=== PATIENT | male | born 1965 | race Caucasian/White ===

== ENCOUNTER 2018-03-27 06:36 | Emergency (ER) | payer OTHER ==
[2018-03-27] MEDS ORDERED: METHYLPREDNISOLONE 125 MG INJ ONE (07:06)
[2018-03-27] MEDS ORDERED: DIPHENHYDRAMINE 50 MG/ML VIAL ONE (07:07)
[2018-03-27] MEDS ORDERED: FAMOTIDINE 20 MG/2 ML VIAL IV ONE (07:07)
[2018-03-27] MEDS ORDERED: predniSONE 20 MG TAB ONE (07:07)
[2018-03-27] MEDS ORDERED: NA CHLORIDE 0.9% 1,000 ML ONE (07:08)
[2018-03-27 07:12] LABS: Absolute Lymphocytes (CBC) 1.2 K/uL (0.7-4.9); Absolute Monocytes 0.9 K/uL (0.1-1.3); Absolute Neutrophil 4.4 K/uL (1.8-8.0); Basophils % 0.3 % (0-1.3); Eosinophils % 7.6 % (0-4.4); Hematocrit 48.3 % (39.6-49.0); Lymphocytes % 16.9 % (15.3-44.8); MCH 32.1 pg (27.0-35.0); MPV 10.4 fL (7.6-11.3); Monocytes % 12.5 % (3.3-12.3); RBC Red Blood Cell Count 5.08 M/uL (4.33-5.43)
[2018-03-27 07:46] LABS: Bilirubin Total 0.5 mg/dL (0.2-1.0); Potassium 4.4 mmol/L (3.5-5.1); Protein, Total 7.7 g/dL (6.4-8.2)
[2018-03-27] MEDS ORDERED: IPRATROPIUM BROM 0.5MG/2.5ML ONE (08:02)
[2018-03-27] MEDS ORDERED: ALBUTEROL 2.5 MG/3 ML NEB SOL ONE (08:02)
--- NOTE | 2018-03-27 08:30 | EDPHYS ---
Physician Documentation [facility] Name: Bob Borjas Age: 52 yrs Sex: Male : 1965 Arrival Date: 03/27/2018 Time: 06:40 Bed 5 Private MD: Anthony Herndon T ED Physician Lee Aguirre HPI: 03/27 06:53 This 52 yrs old Male presents to ER via Ambulatory with complaints of rudy Allergic Reaction. 06:53 The patient presents with difficulty swallowing, redness of skin, runny nose, swelling rudy of the lips, swelling of the tongue. Onset: The symptoms/episode began/occurred just prior to arrival, this morning. Associated signs and symptoms: The patient has no apparent associated signs or symptoms. Possible causes: The patient has no known obvious cause for the symptoms, symbicort, avacados. At home the patient or guardian has treated the symptoms with nothing. Severity of symptoms: At their worst the symptoms were mild in the emergency department the symptoms are unchanged. The patient has not experienced similar symptoms in the past. Historical: - Allergies: 06:52 No Known Allergies; ea - Home Meds: 06:52 losartan oral oral [Active]; allopurinol 300 mg Oral tab 1 tab once daily [Active]; ea Bystolic 5 mg oral tab 1 tab once daily [Active]; escitalopram oxalate oral oral [Active]; Vandana Oral [Active]; - PMHx: 06:53 Hypertension; Asthma; ea - Immunization history:: Adult Immunizations up to date. - Social history:: Smoking status: Patient/guardian denies using tobacco. - Ebola Screening: : No symptoms or risks identified at this time. - Family history:: not pertinent. ROS: 06:53 Constitutional: Negative for fever, chills, and weight loss, Eyes: Negative for injury, rudy pain, redness, and discharge, ENT: Negative for injury, pain, and discharge, Neck: Negative for injury, pain, and swelling, Cardiovascular: Negative for chest pain, palpitations, and edema, Respiratory: Negative for shortness of breath, cough, wheezing, and pleuritic chest pain, Abdomen/GI: Negative for abdominal pain, nausea, vomiting, diarrhea, and constipation, Back: Negative for injury and pain, : Negative for injury, bleeding, discharge, and swelling, MS/Extremity: Negative for injury and deformity, Skin: Negative for injury, rash, and discoloration, Neuro: Negative for headache, weakness, numbness, tingling, and seizure, Psych: Negative for depression, anxiety, suicide ideation, homicidal ideation, and hallucinations, Endocrine: Negative for neck swelling, polydipsia, polyuria, polyphagia, and marked weight changes, Hematologic/Lymphatic: Negative for swollen nodes, abnormal bleeding, and unusual bruising. 06:53 Allergy/Immunology: Positive for allergies. Exam: 06:53 Constitutional: This is a well developed, well nourished patient who is awake, alert, rudy and in no acute distress. Eyes: Pupils equal round and reactive to light, extra-ocular motions intact. Lids and lashes normal. Conjunctiva and sclera are non-icteric and not injected. Cornea within normal limits. Periorbital areas with no swelling, redness, or edema. ENT: Nares patent. No nasal discharge, no septal abnormalities noted. Tympanic membranes are normal and external auditory canals are clear. Oropharynx with no redness, swelling, or masses, exudates, or evidence of obstruction, uvula midline. Mucous membranes moist. Neck: Trachea midline, no thyromegaly or masses palpated, and no cervical lymphadenopathy. Supple, full range of motion without nuchal rigidity, or vertebral point tenderness. No Meningismus. Chest/axilla: Normal chest wall appearance and motion. Nontender with no deformity. No lesions are appreciated. Cardiovascular: Regular rate and rhythm with a normal S1 and S2. No gallops, murmurs, or rubs. Normal PMI, no JVD. No pulse deficits. Respiratory: Lungs have equal breath sounds bilaterally, clear to auscultation and percussion. No rales, rhonchi or wheezes noted. No increased work of breathing, no retractions or nasal flaring. Abdomen/GI: Soft, non-tender, with normal bowel sounds. No distension or tympany. No guarding or rebound. No evidence of tenderness throughout. Back: No spinal tenderness. No costovertebral tenderness. Full range of motion. Male : Normal genitalia with no discharge or lesions. Skin: Warm, dry with normal turgor. Normal color with no rashes, no lesions, and no evidence of cellulitis. MS/ Extremity: Pulses equal, no cyanosis. Neurovascular intact. Full, normal range of motion. Neuro: Awake and alert, GCS 15, oriented to person, place, time, and situation. Cranial nerves II-XII grossly intact. Motor strength 5/5 in all extremities. Sensory grossly intact. Cerebellar exam normal. Normal gait. Psych: Awake, alert, with orientation to person, place and time. Behavior, mood, and affect are within normal limits. 06:53 Head/face: Noted is swelling, that is mild, that is moderate, of the mouth. Vital Signs: 06:53 BP 154 / 94; Pulse 70; Resp 18; Temp 97.8(TE); Pulse Ox 97% on R/A; Weight 113.4 kg; ea Height 6 ft. (182.88 cm); 07:30 BP 157 / 106; Pulse 59; Resp 18; Pulse Ox 97% ; sv 08:00 BP 125 / 89; Pulse 73; Resp 16; Pulse Ox 100% ; sv 08:40 BP 157 / 81; Pulse 69; Resp 16; Pulse Ox 99% on R/A; sv 06:53 Body Mass Index 33.91 (113.40 kg, 182.88 cm) ea MDM: 06:41 Patient medically screened. rudy 06:56 Data reviewed: vital signs, nurses notes, lab test result(s), CBC, electrolytes. rudy 08:27 Counseling: I had a detailed discussion with the patient and/or guardian regarding: the ma2 historical points, exam findings, and any diagnostic results supporting the discharge/admit diagnosis, the presence of at least one elevated blood pressure reading (>120/80) during this emergency department visit, the need for outpatient follow up. Response to treatment: the patient's symptoms have resolved after treatment. ED course: signed out to me by , allergic reaction resolved now.. . 03/27 06:53 Order name: CBC with Diff rudy 03/27 06:53 Order name: Comprehensive Metabolic Panel rudy Administered Medications: 07:00 Drug: NS 0.9% 1000 ml Route: IV; Rate: 1 bolus; Site: right antecubital; cc3 08:00 Follow up: Response: No adverse reaction; IV Status: Completed infusion; IV Intake: sv 1000ml 07:00 Drug: predniSONE 60 mg Route: PO; cc3 07:20 Follow up: Response: No adverse reaction sv 07:03 Drug: SOLU-Medrol 125 mg Route: IVP; Site: right antecubital; cc3 07:20 Follow up: Response: No adverse reaction sv 07:06 Drug: Pepcid 40 mg Route: IVP; Site: right antecubital; cc3 07:20 Follow up: Response: No adverse reaction sv 07:07 Drug: Benadryl 50 mg Route: IVP; Site: right antecubital; cc3 07:20 Follow up: Response: No adverse reaction sv 07:57 Drug: Albuterol 2.5 mg Route: Inhalation; sv 07:57 Drug: AtroVENT Aerosol 0.5 mg Route: Inhalation; sv Disposition: 03/27/18 08:29 Discharged to Home. Impression: Angioneurotic edema. - Condition is Stable. - Discharge Instructions: Allergies, Adult, Angioedema, Angioedema, [id number]. - Prescriptions for Benadryl 25 mg Oral Capsule - take 2 capsule by ORAL route every 6 hours As needed; 36 tablet. Pepcid 20 mg Oral Tablet - take 1 tablet by ORAL route every 12 hours for 10 days; 20 tablet. Prednisone 20 mg Oral Tablet - take 2 tablet by ORAL route once daily for 5 days; 10 tablet. EpiPen 0.3 mg Injection auto- injector - inject 1 pen by INTRAMUSCULAR route as directed Inject into the outer portion of the thigh, through clothing if necessary. Indicated in the emergency treatment of allergic reactions; 1 box. - Medication Reconciliation Form, Thank You Letter, Antibiotic Education, Prescription Opioid Use form. - Follow up: Anthony Herndon; When: 2 - 3 days; Reason: Recheck today's complaints, Continuance of care, Re-evaluation by your physician. - Problem is new. - Symptoms have improved. Signatures: Dispatcher [employer] Mary Traylor RN RN sv Anderson, Corey, MD MD cha Antunez, Elena, RN RN ea Alzahri, Mohammad, MD MD ma2 Cordel, Charlene cc3 Corrections: (The following items were deleted from the chart) 08:44 08:29 03/27/2018 08:29 Discharged to Home. Impression: Angioneurotic edema. Condition sv is Stable. Discharge Instructions: Allergies, Adult, Angioedema, Angioedema, Exmd-xs-Cnic. Prescriptions for Benadryl 25 mg Oral Capsule - take 2 capsule by ORAL route every 6 hours As needed; 36 tablet, Pepcid 20 mg Oral Tablet - take 1 tablet by ORAL route every 12 hours for 10 days; 20 tablet, Prednisone 20 mg Oral Tablet - take 2 tablet by ORAL route once daily for 5 days; 10 tablet, EpiPen 0.3 mg Injection auto-injector - inject 1 pen by INTRAMUSCULAR route as directed Inject into the outer portion of the thigh, through clothing if necessary. Indicated in the emergency treatment of allergic reactions; 1 box. and Forms are Medication Reconciliation Form, Thank You Letter, Antibiotic Education, Prescription Opioid Use. Follow up: Anthony Herndon; When: 2 - 3 days; Reason: Recheck today's complaints, Continuance of care, Re-evaluation by your physician. Problem is new. Symptoms have improved. ma2
--- NOTE | 2018-03-27 08:30 | ER ---
Nurse's Notes [facility] Name: Bob Borjas Age: 52 yrs Sex: Male : 1965 Arrival Date: 03/27/2018 Time: 06:40 Bed 5 Private MD: Anthony Herndon T Diagnosis: Angioneurotic edema Presentation: 03/27 06:47 Presenting complaint: Patient states: Pt reports he woke up with swollen lip two nights ea ago and had gone down but tonight he woke up with lip swelling and chest tightness with SOB. Pt reports he ate guacamole and started Symbicort. Transition of care: patient was not received from another setting of care. Onset: The symptoms/episode began/occurred 2 days ago. Anaphylaxis evaluation, lip swelling. Onset of symptoms was March 25, 2018. Risk Assessment: Do you want to hurt yourself or someone else? Patient reports no desire to harm self or others. Initial Sepsis Screen: Does the patient meet any 2 criteria? No. Patient's initial sepsis screen is negative. Does the patient have a suspected source of infection? No. Patient's initial sepsis screen is negative. Care prior to arrival: None. 06:47 Method Of Arrival: Ambulatory ea 06:47 Acuity: OWEN 3 ea Triage Assessment: 06:47 General: Appears uncomfortable, Behavior is calm, cooperative, appropriate for age. ea Pain: Denies pain. Neuro: Level of Consciousness is awake, alert, obeys commands, Oriented to person, place, time, situation. Cardiovascular: Heart tones S1 S2 present Patient's skin is warm and dry. Respiratory: Airway is patent Respiratory effort is even, unlabored, Respiratory pattern is regular, symmetrical, Breath sounds are clear bilaterally. Respiratory: Parent/caregiver reports the patient having shortness of breath. Derm: swelling noted in face and lips. Historical: - Allergies: 06:52 No Known Allergies; ea - Home Meds: 06:52 losartan oral oral [Active]; allopurinol 300 mg Oral tab 1 tab once daily [Active]; ea Bystolic 5 mg oral tab 1 tab once daily [Active]; escitalopram oxalate oral oral [Active]; Vandana Oral [Active]; - PMHx: 06:53 Hypertension; Asthma; ea - Immunization history:: Adult Immunizations up to date. - Social history:: Smoking status: Patient/guardian denies using tobacco. - Ebola Screening: : No symptoms or risks identified at this time. - Family history:: not pertinent. Screenin:53 Abuse screen: Denies threats or abuse. Nutritional screening: No deficits noted. ea Tuberculosis screening: No symptoms or risk factors identified. Fall Risk None identified. Assessment: 07:00 Reassessment: Patient appears in no apparent distress at this time. Patient and/or cc3 family updated on plan of care and expected duration. Pain level reassessed. Patient is alert, oriented x 3, equal unlabored respirations, skin warm/dry/pink. Handed over to morning shift for continuity of care. 07:20 General: Appears in no apparent distress. uncomfortable, well developed, Behavior is sv calm, cooperative, appropriate for age. Pain: Complains of pain in chest Pain currently is 5 out of 10 on a pain scale. Quality of pain is described as tightness. Neuro: Level of Consciousness is awake, alert, obeys commands, Oriented to person, place, time, situation, Moves all extremities. Full function Gait is steady, Speech is normal. Respiratory: Airway is patent Respiratory effort is even, unlabored, Respiratory pattern is regular, symmetrical, Breath sounds are clear bilaterally. Derm: Skin is pink, warm \T\ dry. swelling noted to the upper lip and pt reports swelling to the tongue. 08:15 Reassessment: Patient appears in no apparent distress at this time. Patient and/or sv family updated on plan of care and expected duration. Pain level reassessed. Patient is alert, oriented x 3, equal unlabored respirations, skin warm/dry/pink. Patient states feeling better. Patient states symptoms have improved. 08:41 Reassessment: Patient appears in no apparent distress at this time. Patient and/or sv family updated on plan of care and expected duration. Pain level reassessed. Patient is alert, oriented x 3, equal unlabored respirations, skin warm/dry/pink. Patient states feeling better. Patient states symptoms have improved. Vital Signs: 06:53 BP 154 / 94; Pulse 70; Resp 18; Temp 97.8(TE); Pulse Ox 97% on R/A; Weight 113.4 kg; ea Height 6 ft. (182.88 cm); 07:30 BP 157 / 106; Pulse 59; Resp 18; Pulse Ox 97% ; sv 08:00 BP 125 / 89; Pulse 73; Resp 16; Pulse Ox 100% ; sv 08:40 BP 157 / 81; Pulse 69; Resp 16; Pulse Ox 99% on R/A; sv 06:53 Body Mass Index 33.91 (113.40 kg, 182.88 cm) ea ED Course: 06:40 Patient arrived in ED. am2 06:41 Anthony Herndon MD is Private Physician. am2 06:41 Alexis Lin MD is Attending Physician. rudy 06:50 Triage completed. ea 06:50 Inserted saline lock: 20 gauge in right antecubital area, using aseptic technique. cc3 Blood collected. 06:52 Patient has correct armband on for positive identification. Bed in low position. Call cc3 light in reach. Side rails up X 1. Pulse ox on. NIBP on. 06:54 Arm band placed on right wrist. Patient placed in an exam room, on a stretcher, on ea pulse oximetry. 07:22 Carol Nagy RN is Primary Nurse. ph 07:59 Primary Nurse role handed off by Carol Nagy RN sv 07:59 Mary Rey RN is Primary Nurse. sv 08:27 Attending Physician role handed off by Alexis Lin MD ma2 08:27 Lee Aguirre MD is Attending Physician. ma2 08:28 Anthony Herndon MD is Referral Physician. ma2 08:41 No provider procedures requiring assistance completed. IV discontinued, intact, sv bleeding controlled, No redness/swelling at site. Pressure dressing applied. Administered Medications: 07:00 Drug: NS 0.9% 1000 ml Route: IV; Rate: 1 bolus; Site: right antecubital; cc3 08:00 Follow up: Response: No adverse reaction; IV Status: Completed infusion; IV Intake: sv 1000ml 07:00 Drug: predniSONE 60 mg Route: PO; cc3 07:20 Follow up: Response: No adverse reaction sv 07:03 Drug: SOLU-Medrol 125 mg Route: IVP; Site: right antecubital; cc3 07:20 Follow up: Response: No adverse reaction sv 07:06 Drug: Pepcid 40 mg Route: IVP; Site: right antecubital; cc3 07:20 Follow up: Response: No adverse reaction sv 07:07 Drug: Benadryl 50 mg Route: IVP; Site: right antecubital; cc3 07:20 Follow up: Response: No adverse reaction sv 07:57 Drug: Albuterol 2.5 mg Route: Inhalation; sv 07:57 Drug: AtroVENT Aerosol 0.5 mg Route: Inhalation; sv Intake: 08:00 IV: 1000ml; Total: 1000ml. sv Outcome: 08:29 Discharge ordered by MD. gonsalez 08:41 Discharged to home ambulatory. sv 08:41 Condition: stable 08:41 Discharge instructions given to patient, Instructed on discharge instructions, follow up and referral plans. medication usage, Demonstrated understanding of instructions, follow-up care, medications, Prescriptions given X 4. 08:44 Patient left the ED. sv Signatures: Mary Rey, Alexis St RN, MD MD cha Hall, Patricia RN SYEDA Vince, Lauryn [email or web address] Lorraine Clement RN RN ea Alzahri, Mohammad, MD MD ma2 Cordel, Charlene cc3
== END 2018-03-27 08:44 | disposition home or self-care (01) ==
LOC: ER 06:36
DX: T78.3XXA Angioneurotic edema, initial encounter (principal); I10 Essential (primary) hypertension; J45.909 Unspecified asthma, uncomplicated; Z79.899 Other long term (current) drug therapy
CPT/HCPCS: 36415; 80053; 85025; 96361; 96374; 96375; 99284; J2930; J7030; J7512

== ENCOUNTER 2021-03-11 18:23 | Emergency (ER) | payer BC ==
[2021-03-11 19:00] LABS: Urine Blood Negative (Negative); Urine Glucose Negative (Negative); Urine Protein Negative (Negative)
[2021-03-11 19:25] LABS: Barbiturates NEGATIVE (NEGATIVE); Benzodiazepines NEGATIVE (NEGATIVE); Cocaine NEGATIVE (NEGATIVE); METHAMPHETAM NEGATIVE (NEGATIVE); Methadone NEGATIVE (NEGATIVE); Opiates NEGATIVE (NEGATIVE); Phencyclidine NEGATIVE (NEGATIVE); THC Cannibis NEGATIVE (NEGATIVE)
--- NOTE | 2021-03-11 19:34 | RAD REPORT ---
EXAM DESCRIPTION: CT - Head Brain Wo Cont - 03/11/2021 7:23 pm CLINICAL HISTORY: SLURRED SPEECH COMPARISON: No comparisonsSINUS W O CONTRAST dated 07/13/2012 TECHNIQUE: Axial 5 mm thick images of the head were obtained without IV contrast. All CT scans are performed using dose optimization technique as appropriate and may include automated exposure control or mA/KV adjustment according to patient size. FINDINGS: No intracranial hemorrhage, mass, edema or shift of mid-line structures. No acute infarcti on changes seen. No abnormal extra-axial fluid collections. Ventricles are normal. Mastoid air cells are clear. Maxillary sinus mucosal thickening is present right greater than left. A ntral window defects are seen. Ethmoid air cell mucosal thickening changes are present. No acute bony findings. IMPRESSION: No intracranial abnormality seen. Chronic sinusitis changes as detailed.
--- NOTE | 2021-03-11 19:35 | RAD REPORT ---
EXAM DESCRIPTION: RAD - Chest Single View - 03/11/2021 7:29 pm CLINICAL HISTORY: PALPITATIONS COMPARISON: None TECHNIQUE: AP portable chest image was obtained 03/11/2021 7:29 pm . FINDINGS: Lung volumes are low with no peripheral mass or consolidation. Perihilar markings not outs jackie normal range for shallow inspiration portable exam. Heart and vasculature are normal. No measurab le pleural effusion and no pneumothorax. No acute bony abnormality seen. No acute aortic findings josi pected. IMPRESSION: No acute cardiopulmonary process. Perihilar markings accentuated by shallow inspiration.
[2021-03-11 20:03] LABS: Absolute Lymphocytes (CBC) 1.8 K/uL (0.7-4.9); Basophils % 0.9 % (0-1.3); Hematocrit 43.1 % (39.6-49.0); Lymphocytes % 30.5 % (15.3-44.8); MPV 8.5 fL (7.6-11.3)
[2021-03-11 20:08] LABS: Protime INR 1.02
[2021-03-11 20:39] LABS: ALT/SGPT 86 U/L (12-78); Albumin 3.9 g/dL (3.4-5.0); Alkaline Phosphatase 118 U/L (45-117); BUN Blood Urea Nitrogen 14 mg/dL (7-18); Bicarbonate 24 mmol/L (21-32); Bilirubin Direct 0.1 mg/dL (0-0.2); Bilirubin Total 0.6 mg/dL (0.2-1.0); Glucose Level 104 mg/dL (74-106); NT PRO-BNP 46 pg/mL (<125); Protein, Total 7.3 g/dL (6.4-8.2); Sodium Level 141 mmol/L (136-145); Troponin (Emerg Dept Use Only) < 0.02 ng/mL (0.0-0.045)
[2021-03-11 20:40] LABS: AST/SGOT 63 U/L (15-37); Magnesium 2.3 mg/dL (1.8-2.4); Potassium 3.8 mmol/L (3.5-5.1)
[2021-03-11] MEDS ORDERED: NA CHLORIDE 0.9% 1,000 ML ONE ×2 (21:04→22:13)
--- NOTE | 2021-03-11 21:50 | EDPHYS ---
Physician Documentation [facility] Name: Bob Borjas Age: 55 yrs Sex: Male : 1965 Arrival Date: 03/11/2021 Time: 18:25 Bed 7 Private MD: ED Physician Jt Simmons HPI: 03/11 19:00 This 55 yrs old Male presents to ER via Wheelchair with complaints of Blood cp Pressure Problem - low, Slurred Speech, Trouble Walking. 19:00 The patient's problem is reported as slurred speech. cp 19:00 Onset: The symptoms/episode began/occurred today, about 1700. Duration: This was a cp single incident, now resolved. Associated signs and symptoms: Pertinent positives: unsteady gait. 19:00 Patient's baseline: Neuro: alert and fully oriented, Motor: no deficits, Ambulation: cp walks without assistance, Speech: normal. 19:00 Patient reports that he has consumed 2-4 beers today since 1700. cp Historical: - Allergies: 18:42 PENICILLINS; iw - Home Meds: 18:42 Bystolic 10 mg oral tab once daily [Active]; atorvastatin 10 mg oral tab 1 tab once iw daily [Active]; doxazosin 2 mg oral tab 1 tab once daily [Active]; valsartan 320 mg oral tab 1 tab once daily [Active]; allopurinol 300 mg Oral tab 1 tab once daily [Active]; montelukast 10 mg oral tab 1 tab once daily [Active]; Flonase 50 mcg/actuation Nasal spsn 1 spray once daily [Active]; Vandana 180 mg Oral tab 1 tab once daily [Active]; - PMHx: 18:42 Asthma; Hypertension; iw - PSHx: 18:42 None; iw - Social history:: Smoking status: Patient uses alcohol, 4 beers . ROS: 19:05 Constitutional: Negative for body aches, chills, fever, poor PO intake. cp 19:05 Eyes: Negative for injury, pain, redness, and discharge. cp 19:05 Cardiovascular: Negative for chest pain, edema, palpitations. 19:05 Respiratory: Negative for cough, shortness of breath, wheezing. 19:05 Abdomen/GI: Negative for abdominal pain, nausea, vomiting, and diarrhea, black/tarry stool, rectal bleeding. 19:05 Neuro: Positive for speech changes, Negative for altered mental status, headache, numbness, tingling, weakness. 19:05 All other systems are negative. Exam: 19:08 Constitutional: The patient appears in no acute distress, alert, awake, cp non-diaphoretic, non-toxic, well developed, well nourished. 19:08 Head/Face: Normocephalic, atraumatic. cp 19:08 Eyes: Periorbital structures: appear normal, Pupils: equal, round, and reactive to light and accomodation, Extraocular movements: intact throughout, Conjunctiva: normal, no exudate, no injection, Sclera: no appreciated abnormality, Lids and lashes: appear normal, bilaterally. 19:08 ENT: External ear(s): are unremarkable, Nose: is normal, Mouth: Lips: moist, Oral mucosa: moist, Posterior pharynx: Airway: no evidence of obstruction, patent. 19:08 Neck: ROM/movement: is normal, is supple, without pain, no range of motions limitations, no nuchal rigidity. 19:08 Chest/axilla: Inspection: normal, Palpation: is normal, no crepitus, no tenderness. 19:08 Cardiovascular: Rate: normal, Rhythm: regular, Edema: is not appreciated, JVD: is not appreciated. 19:08 Respiratory: the patient does not display signs of respiratory distress, Respirations: normal, no use of accessory muscles, no retractions, labored breathing, is not present, Breath sounds: are clear throughout, no decreased breath sounds, no stridor, no wheezing. 19:08 Abdomen/GI: Inspection: abdomen appears normal, Palpation: abdomen is soft and non-tender, in all quadrants. 19:08 Neuro: Orientation: to person, place \T\ time. Mentation: able to follow commands, slow to respond, Motor: moves all fours, strength is normal, Sensation: is normal. 19:47 ECG was reviewed by the Attending Physician. cp 19:55 Radiologist reports: no acute findings cp Vital Signs: 18:37 BP 99 / 57; Pulse 73; Resp 16; Temp 97.0; Pulse Ox 96% on R/A; Weight 111.13 kg; Height iw 6 ft. 2 in. (187.96 cm); 19:55 BP 100 / 61; lh3 20:40 BP 136 / 78; Pulse 75; Resp 18; Pulse Ox 96% on R/A; lh3 18:37 Body Mass Index 31.46 (111.13 kg, 187.96 cm) iw NIH Stroke Scale Scores: 19:08 NIHSS Score: 0 cp 19:55 NIHSS Score: 0 lh3 MDM: 19:01 Patient medically screened. cp 20:00 Differential diagnosis: metabolic disorder, drug effects, alcohol abuse, alcohol cp intoxication, TIA, CVA, illegal drug use. 21:50 Data reviewed: vital signs, nurses notes, lab test result(s), EKG, radiologic studies, cp CT scan, plain films. 21:50 Test interpretation: by ED physician or midlevel provider: ECG, plain radiologic cp studies. Counseling: I had a detailed discussion with the patient and/or guardian regarding: the historical points, exam findings, and any diagnostic results supporting the discharge/admit diagnosis, lab results, radiology results, to return to the emergency department if symptoms worsen or persist or if there are any questions or concerns that arise at home. Response to treatment: the patient's symptoms have markedly improved after treatment, and as a result, I will discharge patient. 21:50 ED course: VSS. Blood pressure markedly improved with fluids. Patient accompanied to ED cp with who will continue to monitor at home. 03/11 18:52 Order name: UDS 03/11 18:53 Order name: Urine Drug Screen; Complete Time: 19:51 EDMS 03/11 18:59 Order name: Urine Dipstick-Ancillary; Complete Time: 19:51 EDNM 03/11 19:02 Order name: Basic Metabolic Panel 03/11 19:02 Order name: CBC with Diff; Complete Time: 20:12 03/11 19:02 Order name: LFT's; Complete Time: 21:18 cp 03/11 21:18 Interpretation: Normal except: AST 63; ALT 86; ALK 118. 03/11 19:02 Order name: Magnesium; Complete Time: 21:18 03/11 19:02 Order name: NT PRO-BNP; Complete Time: 21:18 cp 03/11 19:02 Order name: PT-INR; Complete Time: 21:18 03/11 19:02 Order name: Troponin (emerg Dept Use Only); Complete Time: 21:18 cp 03/11 19:02 Order name: XRAY Chest (1 view); Complete Time: 19:51 cp 03/11 19:02 Order name: CT Head Brain wo Cont; Complete Time: 19:51 cp 03/11 19:51 Interpretation: Report reviewed. cp 03/11 19:02 Order name: ETOH Level; Complete Time: 21:18 cp 03/11 21:19 Interpretation: ETOH 240; Reviewed. cp 03/11 19:02 Order name: Basic Metabolic Panel; Complete Time: 21:18 EDMS 03/11 21:19 Interpretation: Normal except: GFR 66; CA 8.0. cp 03/11 19:02 Order name: EKG; Complete Time: 19:02 cp 03/11 19:02 Order name: Cardiac monitoring; Complete Time: 19:54 cp 03/11 19:02 Order name: EKG - Nurse/Tech; Complete Time: 19:54 cp 03/11 19:02 Order name: IV Saline Lock; Complete Time: 19:54 cp 03/11 19:02 Order name: Labs collected and sent; Complete Time: 19:54 cp 03/11 19:02 Order name: O2 Per Protocol; Complete Time: 19:54 cp 03/11 19:02 Order name: O2 Sat Monitoring; Complete Time: 19:54 cp EC:47 Rate is 68 beats/min. Rhythm is regular. [place] interval is normal. QRS interval is cp prolonged at 106 msec. QT interval is normal. T waves are Inverted in lead aVR. Interpreted by me. Reviewed by me. Administered Medications: 20:08 Drug: NS 0.9% 1000 ml Route: IV; Rate: 1 bolus; Site: right antecubital; lh3 21:17 Drug: NS 0.9% 1000 ml Route: IV; Rate: 1 bolus; Site: right antecubital; bs2 Disposition: 03/12 06:35 Co-signature as Attending Physician, Jt Simmons MD I agree with the assessment and kdr plan of care. Disposition Summary: 03/11/21 21:50 Discharge Ordered Location: Home cp Problem: new cp Symptoms: have improved cp Condition: Stable cp Diagnosis - Alcohol use, unspecified with intoxication cp Followup: cp - With: Private Physician - When: 1 - 2 days - Reason: Recheck today's complaints Discharge Instructions: - Discharge Summary Sheet cp - Alcohol Intoxication cp Forms: - Medication Reconciliation Form cp - Thank You Letter cp - Antibiotic Education cp - Prescription Opioid Use cp NIH Stroke Scale - NIH Stroke Score Date: 03/11/2021 Time: 19:08 Total Score = 0 1a. Level of Consciousness (LOC) - 0(Alert) 1b. Level of Consciousness (LOC) (Month \T\ Age) - 0(Both) 1c. LOC Commands (Open \T\ Closes Eyes/Lining Cementer) - 0(Both) 2. Best Gaze (Lateral Gaze Paresis) - 0(Normal) 3. Visual Field Loss - 0(No visual loss) 4. Facial Palsy - 0(Normal) 5a. Left Arm: Motor (10-second hold) - 0(No drift) 5b. Right Arm: Motor (10-second hold) - 0(No drift) 6a. Left Leg: Motor (5-second hold - always test supine) - 0(No drift) 6b. Right Leg: Motor (5-second hold - always test supine) - 0(No drift) 7. Limb Ataxia (finger/nose \T\ heel/fatima - test with eyes open) - 0(Absent) 8. Sensory Loss (pinprick arms/legs/face) - 0(Normal) 9. Best Language: Aphasia (description/naming/reading) - 0(No aphasia) 10. Dysarthria (speech clarity - read or repeat words) - 0(Normal) 11. Extinction and Inattention (visual/tactile/auditory/spatial/personal) - 0(No abnormality) Initials: cp NIH Stroke Scale - NIH Stroke Score Date: 03/11/2021 Time: 19:55 Total Score = 0 1a. Level of Consciousness (LOC) - 0(Alert) 1b. Level of Consciousness (LOC) (Month \T\ Age) - 0(Both) 1c. LOC Commands (Open \T\ Closes Eyes/Lining Cementer) - 0(Both) 2. Best Gaze (Lateral Gaze Paresis) - 0(Normal) 3. Visual Field Loss - 0(No visual loss) 4. Facial Palsy - 0(Normal) 5a. Left Arm: Motor (10-second hold) - 0(No drift) 5b. Right Arm: Motor (10-second hold) - 0(No drift) 6a. Left Leg: Motor (5-second hold - always test supine) - 0(No drift) 6b. Right Leg: Motor (5-second hold - always test supine) - 0(No drift) 7. Limb Ataxia (finger/nose \T\ heel/fatima - test with eyes open) - 0(Absent) 8. Sensory Loss (pinprick arms/legs/face) - 0(Normal) 9. Best Language: Aphasia (description/naming/reading) - 0(No aphasia) 10. Dysarthria (speech clarity - read or repeat words) - 0(Normal) 11. Extinction and Inattention (visual/tactile/auditory/spatial/personal) - 0(No abnormality) Initials: lh3 Signatures: Dispatcher [employer] EDJt Rg MD MD kdr Ida Alvarado RN RN iw Alexis Shoemaker PA PA cp Smith, Bridget, SYEDA RN bs2 Patricia Swann RN RN lh3
--- NOTE | 2021-03-11 21:50 | ER ---
Nurse's Notes [facility] Name: Bob Borjas Age: 55 yrs Sex: Male : 1965 Arrival Date: 03/11/2021 Time: 18:25 Bed 7 Private MD: Diagnosis: Alcohol use, unspecified with intoxication Presentation: 03/11 18:37 Chief complaint: Spouse and/or significant other states: his bp has been all over the iw place this evening, first he was walking around like he was drunk, his speech was slurred, he hasn't eaten today and had two beers, then she noticed he had pinpoint pupils , BP was 97/58 at home , two weeks ago he wasn't feeling good and his BP was 60/40. Coronavirus screen: At this time, the client does not indicate any symptoms associated with coronavirus-19. Ebola Screen: Patient negative for fever greater than or equal to 101.5 degrees Fahrenheit, and additional compatible Ebola Virus Disease symptoms Patient denies exposure to infectious person. Patient denies travel to an Ebola-affected area in the 21 days before illness onset. No symptoms or risks identified at this time. Initial Sepsis Screen: Does the patient have a suspected source of infection? No. Patient's initial sepsis screen is negative. Initial Sepsis Screen: Does the patient meet any 2 criteria? No. Patient's initial sepsis screen is negative. Risk Assessment: Do you want to hurt yourself or someone else? Patient reports no desire to harm self or others. Onset of symptoms was March 11, 2021. 18:37 Method Of Arrival: Wheelchair iw 18:37 Acuity: OWEN 2 iw 20:40 No acute neurological deficit is noted. Pre-hospital glucose is not applicable to this lh3 patient. Triage Assessment: 20:41 The onset of the patients symptoms was at an unknown time. General: Appears in no lh3 apparent distress. Behavior is calm, cooperative, appropriate for age. 20:41 The onset of the patients symptoms was less than three hours ago. Neuro: Reports lh3 feeling fine. Historical: - Allergies: 18:42 PENICILLINS; iw - Home Meds: 18:42 Bystolic 10 mg oral tab once daily [Active]; atorvastatin 10 mg oral tab 1 tab once iw daily [Active]; doxazosin 2 mg oral tab 1 tab once daily [Active]; valsartan 320 mg oral tab 1 tab once daily [Active]; allopurinol 300 mg Oral tab 1 tab once daily [Active]; montelukast 10 mg oral tab 1 tab once daily [Active]; Flonase 50 mcg/actuation Nasal spsn 1 spray once daily [Active]; Vandana 180 mg Oral tab 1 tab once daily [Active]; - PMHx: 18:42 Asthma; Hypertension; iw - PSHx: 18:42 None; iw - Social history:: Smoking status: Patient uses alcohol, 4 beers . Screenin:55 Abuse screen: Denies threats or abuse. Denies injuries from another. Nutritional lh3 screening: No deficits noted. Tuberculosis screening: No symptoms or risk factors identified. Fall Risk IV access (20 points). Assessment: 19:55 VAN Scoring: Arm Drift: Patients demonstrates NO arm weakness. Patient is VAN Negative. lh3 T-PA (Activase) Screening: Contraindications:. Pain: Denies pain. Neuro: No deficits noted. 20:33 Patient has been NPO before screening. The patient is alert, and able to follow lh3 commands. The patient does not exhibit slurred or garbled speech. The patient is not exhibiting difficulty speaking. The patient does not exhibit difficulty understanding words. The patient is able to swallow own secretions with no drooling or need for suction. Patient tolerated one teaspoon of water. No drooling, immediate coughing, gurgling, or clearing of the throat was noted. The patient tolerated 90mL of water. No drooling, immediate coughing, gurgling, or clearing of the throat was noted. The patient passed the bedside swallow screening. Oral medications may be given as ordered. Contact Physician for further diet orders. Provider notified of bedside swallow screening results: Alexis CROW. Vital Signs: 18:37 BP 99 / 57; Pulse 73; Resp 16; Temp 97.0; Pulse Ox 96% on R/A; Weight 111.13 kg; Height iw 6 ft. 2 in. (187.96 cm); 19:55 BP 100 / 61; lh3 20:40 BP 136 / 78; Pulse 75; Resp 18; Pulse Ox 96% on R/A; lh3 18:37 Body Mass Index 31.46 (111.13 kg, 187.96 cm) iw NIH Stroke Scale Scores: 19:08 NIHSS Score: 0 cp 19:55 NIHSS Score: 0 lh3 ED Course: 18:25 Patient arrived in ED. as 18:42 Triage completed. iw 18:48 Alexis Shoemaker PA is PHCP. cp 18:48 Jt Simmons MD is Attending Physician. cp 18:59 Arm band placed on. iw 19:22 CT Head Brain wo Cont In Process Unspecified. EDMS 19:29 XRAY Chest (1 view) In Process Unspecified. EDMS 19:54 Patricia Swann, SYEDA is Primary Nurse. lh3 19:54 Basic Metabolic Panel Sent. lh3 19:54 ETOH Level Sent. lh3 19:54 Basic Metabolic Panel Sent. lh3 19:54 CBC with Diff Sent. lh3 19:54 LFT's Sent. lh3 19:54 Magnesium Sent. lh3 19:54 NT PRO-BNP Sent. lh3 19:54 PT-INR Sent. lh3 19:54 Troponin (emerg Dept Use Only) Sent. lh3 19:54 UDS Sent. lh3 19:55 Patient has correct armband on for positive identification. Bed in low position. Call lh3 light in reach. Side rails up X 1. Door closed. Noise minimized. 19:55 No provider procedures requiring assistance completed. Inserted saline lock: 18 gauge lh3 in right antecubital area, using aseptic technique. Blood collected. 21:56 IV discontinued, intact, bleeding controlled, No redness/swelling at site. bs2 Administered Medications: 20:08 Drug: NS 0.9% 1000 ml Route: IV; Rate: 1 bolus; Site: right antecubital; lh3 21:17 Drug: NS 0.9% 1000 ml Route: IV; Rate: 1 bolus; Site: right antecubital; bs2 Outcome: 21:50 Discharge ordered by . cp 21:55 Discharged to home ambulatory, with family. bs2 21:55 Condition: improved 21:55 Discharge instructions given to patient, family, Instructed on discharge instructions, follow up and referral plans. Demonstrated understanding of instructions, follow-up care. 21:56 Patient left the ED. bs2 NIH Stroke Scale - NIH Stroke Score Date: 03/11/2021 Time: 19:08 Total Score = 0 1a. Level of Consciousness (LOC) - 0(Alert) 1b. Level of Consciousness (LOC) (Month \T\ Age) - 0(Both) 1c. LOC Commands (Open \T\ Closes Eyes/Detective Lieutenant) - 0(Both) 2. Best Gaze (Lateral Gaze Paresis) - 0(Normal) 3. Visual Field Loss - 0(No visual loss) 4. Facial Palsy - 0(Normal) 5a. Left Arm: Motor (10-second hold) - 0(No drift) 5b. Right Arm: Motor (10-second hold) - 0(No drift) 6a. Left Leg: Motor (5-second hold - always test supine) - 0(No drift) 6b. Right Leg: Motor (5-second hold - always test supine) - 0(No drift) 7. Limb Ataxia (finger/nose \T\ heel/fatima - test with eyes open) - 0(Absent) 8. Sensory Loss (pinprick arms/legs/face) - 0(Normal) 9. Best Language: Aphasia (description/naming/reading) - 0(No aphasia) 10. Dysarthria (speech clarity - read or repeat words) - 0(Normal) 11. Extinction and Inattention (visual/tactile/auditory/spatial/personal) - 0(No abnormality) Initials: cp NIH Stroke Scale - NIH Stroke Score Date: 03/11/2021 Time: 19:55 Total Score = 0 1a. Level of Consciousness (LOC) - 0(Alert) 1b. Level of Consciousness (LOC) (Month \T\ Age) - 0(Both) 1c. LOC Commands (Open \T\ Closes Eyes/Detective Lieutenant) - 0(Both) 2. Best Gaze (Lateral Gaze Paresis) - 0(Normal) 3. Visual Field Loss - 0(No visual loss) 4. Facial Palsy - 0(Normal) 5a. Left Arm: Motor (10-second hold) - 0(No drift) 5b. Right Arm: Motor (10-second hold) - 0(No drift) 6a. Left Leg: Motor (5-second hold - always test supine) - 0(No drift) 6b. Right Leg: Motor (5-second hold - always test supine) - 0(No drift) 7. Limb Ataxia (finger/nose \T\ heel/fatima - test with eyes open) - 0(Absent) 8. Sensory Loss (pinprick arms/legs/face) - 0(Normal) 9. Best Language: Aphasia (description/naming/reading) - 0(No aphasia) 10. Dysarthria (speech clarity - read or repeat words) - 0(Normal) 11. Extinction and Inattention (visual/tactile/auditory/spatial/personal) - 0(No abnormality) Initials: lh3 Signatures: Dispatcher [employer] Alice Moralez Irene, RN RN iw Alexis Shoemaker PA PA cp Smith, Bridget RN RN bs2 Patricia Swann RN RN lh3
[2021-03-11 23:12] VITALS: TEMP 97; O2SAT 96
[2021-03-11 23:15] VITALS: BP 136/78
== END 2021-03-11 21:56 | disposition home or self-care (01) ==
LOC: ER 18:23
DX: F10.929 Alcohol use, unspecified with intoxication, unspecified (principal); I10 Essential (primary) hypertension; J45.909 Unspecified asthma, uncomplicated; Z88.0 Allergy status to penicillin
CPT/HCPCS: 93005; 85025; 80048; 36415; 80320; 83735; 85610; 80076; 81003; 84484; 83880; 80307; 70450; 71045; 99284; J7030 ×2